=== PATIENT | female | born 2000 | race Caucasian/White ===

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

== ENCOUNTER 2022-01-15 14:53 | Emergency (ER) | payer MEDICAID, SELFPAY ==
[2021-05-29 15:25] VITALS: BP 117/73; BMI 30.6
[2022-01-15 15:06] VITALS: BP 119/79; PULSE 98; RESP 16; TEMP 36.8; O2SAT 98; BMI 38.4
--- NOTE | 2022-01-15 15:09 | XR_ITS ---
WS: [id number] Right knee, 3 views, 01/15/2022 Clinical Data: injury Comparison: None. Findings: No fractures or dislocations are seen. The joint spaces are normal. The patella is intact. The soft t issues are unremarkable. XR/XR knee RT 3V* [id number] Impression: Negative right knee. Kellgren-Warren Classification: NA
--- NOTE | 2022-01-15 15:16 | W.ED.EXTPRO ---
HPI - Extremity Problem General: Chief complaint: Extremity Injury, Lower Stated complaint: right knee injury Time Seen by Provider: 01/15/22 15:11 History of Present Illness: Patient is a 21-year-old female comes to the ED with right knee injury. Injury occurred approximately 45 minutes prior to arrival. Patient states she was walking in her house and her right knee hit a cabinet and she felt a pop. She now has 6 out of 10 pain in her right knee and says it is difficult for her to weight-bear. Any flexing of right knee causes worsening pain. She has not taken any Tylenol or ibuprofen before coming to the ED. Associated symptoms: Deny chest pain, fever(s) or rash Review of Systems Const: Denies: fever(s), chills or fatigue Eyes: Denies: change in vision or eye discomfort ENMT: Denies: throat pain, odynophagia, nasal discharge or nasal congestion Card: Denies: chest pain, palpitations, edema, swelling of feet/ankles, dyspnea on exertion or orthopnea Resp: Denies: dyspnea, productive cough or non-productive cough GI: Denies: abdominal pain, nausea, vomiting, diarrhea, constipation or hematochezia : Denies: flank pain, dysuria or hematuria Musc: Reports: extremity pain (Right knee); Denies: neck pain, back pain or extremity swelling Skin/Breast: Denies: rash or new lesions Neuro: Denies: headache(s), numbness in extremities or weakness in extremities [facility] ED PFSH: Medical History Anxiety and depression History of gestational hypertension No pertinent past medical history neghx:htn,dm,thyroid,dvt/pe Surgical History H/O section 03/22/2021- primary , delivered by Dr. Blanco at [facility] No pertinent past surgical history Family History Family/Other Cancer Maternal Grandmother and Maternal Great-Grandmother Heart disease Paternal Grandmother and Maternal Grandmother Hypertension Maternal Grandfather Stroke Paternal Grandmother Mother Hypertension Denies family history of Colon cancer Ovarian cancer Breast cancer Uterine cancer Thyroid disease Female Reproductive History: Date of last menstrual period: 05/03/20 Para: 0 Spontaneous abortions: No Physical Exam Const: COMMON NORMALS: patient oriented x3, healthy appearing and alert GENERAL APPEARANCE: cooperative and comfortable HENMT: COMMON NORMALS: normocephalic HEAD & SCALP: normocephalic MOUTH: Normal oral and palatal mucosa present THROAT: posterior oropharynx normal and uvula midline Neck/C-Spine: COMMON NORMALS: supple GENERAL: Yes normal visual inspection Resp: COMMON NORMALS: normal respiratory effort, No retractions, No use of accessory muscles and clear to auscultation bilaterally AUSCULTATION: clear to auscultation bilaterally Cardio: COMMON NORMALS: regular rate, regular rhythm, S1 normal heart sound present, S2 normal heart sound present, No gallops present (Cardio), No clicks present (Cardio), No murmurs present (Cardio) and Peripheral pulses 2+ throughout RATE: regular rate RHYTHM: regular rhythm HEART SOUNDS: S1 normal heart sound present and S2 normal heart sound present PERIPHERAL PULSES: Peripheral pulses 2+ throughout GI: COMMON NORMALS: Normal to inspection, nondistended, normoactive bowel sounds present, Soft to palpation, non-tender and no masses PALPATION: Yes Soft to palpation : COMMON NORMALS: Yes no CVA tenderness BLADDER/KIDNEY EXAM: Yes no CVA tenderness Back/Pelvis: COMMON NORMALS: no CVA tenderness Extremity: NARRATIVE EXTREMITY EXAM: Right knee-no deformity seen. Noted mild ecchymosis and swelling seen. Tenderness over patella and medial and lateral aspects of knee. Limited flexion of knee due to pain. Neurovascular tact distally. Neuro: COMMON NORMALS: patient oriented x3 SENSORIUM/ORIENTATION: Yes alert GAIT: Yes Normal gait present Skin: GENERAL SKIN EXAM: dry skin Course Vital Signs: Vital signs: Vital Signs Temperature 98.3 F 01/15/22 15:06 Pulse Rate 98 01/15/22 15:06 Respiratory Rate 16 01/15/22 15:06 Blood Pressure 119/79 01/15/22 15:06 Pulse Oximetry 98 01/15/22 15:06 Oxygen Delivery Me thod 01/15/22 15:06 MDM - Extremity (Nontraumatic) Medical Decision Making Patient is a 21-year-old female comes to the ED with right knee injury. Injury occurred approximately 45 minutes prior to arrival. Patient states she was walking in her house and her right knee hit a cabinet and she felt a pop. She now has 6 out of 10 pain in her right knee and says it is difficult for her to weight-bear. Any flexing of right knee causes worsening pain. Vitals are stable. Right knee showed a little bit of swelling and ecchymosis and tenderness over the patella region. Neurovascular tact. Rest of exam is benign. X-ray of right knee showed no acute findings. Given patient's trouble with any weightbearing and worsening pain with flexion of knee I put in a referral with case management for patient be referred to Ortho for follow-up on knee injury and pain. She was discharged home with crutches. Patient understood and agreed with plan. Lab Data Radiology Impressions Knee X-Ray 01/15/22 15:09 Impression: Negative right knee. Kellgren-Warren Classification: NA Discharge Plan Discharge Patient Disposition: Home Clinical Impression: Injury of knee, right Qualifiers: Encounter type: initial encounter Qualified Code(s): S89.91XA - Unspecified injury of right lower leg, initial encounter Condition: Stable Prescriptions: No Action sertraline [Zoloft] 25 mg tablet 25 mg PO DAILY medroxyprogesterone [Provera] 10 mg tablet 10 mg PO DAILY 10 Days Qty: 10 0RF Discharge Orders: Discharge ED (Routine); Ordered 01/15/22 Ordered By: Meng Gore Referrals: Tim Juarez [Primary Care Provider] - Discharge Diet: Regular Discharge Activity: Use walker/crutches as instructed Patient Instructions: Knee Pain (ED) Activity Restrictions/Additional Instructions: Follow-up with medical provider as directed. Case management regarding in the next several days set up an appointment with Ortho for follow-up on right knee pain. Use crutches and limit weightbearing for the next 2 to 3 days then advance weightbearing as tolerated. Take [id number] ibuprofen or Tylenol for pain. Rest, ice and elevate right knee. Return to the ER or your medical provider if condition worsens. Please read and understand discharge instructions. Thank you for choosing [facility] for your healthcare needs today. Please realize this is an emergency room and that we are providing you with a medical screening exam and this may not be complete and all inclusive of all the testing and or work up that you may need to determine your ailment or severity of your illness. It is very important that you follow up as instructed or that you return to the Emergency Department should you have concerns or if your condition changes or worsens in any way. Coding Level of Care Code ED Quality Review Trainer for Brad Linares Exam Comprehensive
--- NOTE | 2022-01-16 10:45 | DCPLANNER ---
Addendum entered by Eusebia Padgett 01/22/22 08:19: manager icu received the following message from the ortho clinic regarding follow up appointment: Left vm/mailed letter for pt to call and schedule with Wu under Dr. Vela Original Note: manager icu had message to schedule a follow up appointment for patient with ortho. manager icu sent patients information to the front office staff at ortho. Patients information will be printed and reviewed. Clinic will call patient with appointment information.
== END 2022-01-15 16:30 | disposition home or self-care (01) ==
PROVIDERS: Emergency Provider Physician Assistant; PCP Family Medicine
DX: S89.91XA Unspecified injury of right lower leg, initial encounter (principal); W22.8XXA Striking against or struck by other objects, initial encounter
CPT/HCPCS: 73562; 99283; E0114

== ENCOUNTER → 2022-03-18 11:30 | Outpatient (BNVA) | payer MEDICAID, SELFPAY ==
[2021-05-29 15:25] VITALS: BP 117/73; BMI 30.6
== END ==
PROVIDERS: PCP Family Medicine; Visit Provider Nurse Practitioner Women's Health
DX: N91.2 Amenorrhea, unspecified (principal); O03.9 Complete or unspecified spontaneous abortion without complication
CPT/HCPCS: 84702

== ENCOUNTER → 2022-06-29 09:28 | Outpatient (BNVA) | payer MEDICAID, SELFPAY ==
[2021-05-29 15:25] VITALS: BP 117/73; BMI 30.6
== END ==
PROVIDERS: PCP Family Medicine; Visit Provider Nurse Practitioner Women's Health
DX: Z32.01 Encounter for pregnancy test, result positive (principal)
CPT/HCPCS: 81025

== ENCOUNTER → 2022-07-01 09:24 | Outpatient (BNVA) | payer MEDICAID, SELFPAY ==
[2021-05-29 15:25] VITALS: BP 117/73; BMI 30.6
== END ==
PROVIDERS: PCP Family Medicine; Visit Provider Nurse Practitioner Women's Health
DX: Z00.00 Encounter for general adult medical examination without abnormal findings (principal)
CPT/HCPCS: 84702

== ENCOUNTER → 2022-07-13 07:53 | Outpatient (BNVA) | payer MEDICAID, SELFPAY ==
[2021-05-29 15:25] VITALS: BP 117/73; BMI 30.6
== END ==
PROVIDERS: Absent Provider Obstetrics & Gynecology; PCP Family Medicine; Visit Provider Nurse Practitioner Women's Health
DX: Z36.87 Encounter for antenatal screening for uncertain dates (principal)
CPT/HCPCS: 76817

== ENCOUNTER → 2022-07-23 09:00 | Outpatient (BNVA) | payer MEDICAID, SELFPAY ==
[2021-05-29 15:25] VITALS: BP 117/73; BMI 30.6
== END ==
PROVIDERS: PCP Family Medicine; Visit Provider Nurse Practitioner Women's Health
DX: Z34.90 Encounter for supervision of normal pregnancy, unspecified, unspecified trimester (principal); R31.9 Hematuria, unspecified
CPT/HCPCS: 81000; 87086

== ENCOUNTER 2022-08-13 11:37 | Emergency (ER) | payer MEDICAID, SELFPAY ==
[2021-05-29 15:25] VITALS: BP 117/73; BMI 30.6
--- NOTE | 2022-08-13 11:47 | US_ITS ---
WS: [id number] ULTRASOUND EARLY TECHNIQUE: Transabdominal sonography of the pelvis was performed. Followed by transvaginal sonography to better evaluate the uterus and ovaries. CLINICAL INFORMATION: 12 wks preg; cramping LMP: 05/23/2022 Beta hCG: Unknown. COMPARISON: None. FINDINGS: UTERUS AND GESTATIONAL SAC Intrauterine gestations: Single intrauterine gestation with pole measuring 5.3 cm. This is compatible with 12 weeks 0 da y gestation. Cardiac activity visualized. Both ovaries are normal in appearance. Closed cervix measuring 4.1 cm. Estimated gestational age: 12w0d Estimated delivery February 25, 2023 [place] rump length (CRL): 5.3 cm. heart motion: 153 BPM. Subchorionic hemorrhage: None. OVARIES Right ovary: Normal. Left ovary: Normal. FREE FLUID None. US/US OB <= 14 weeks fetus [id number] IMPRESSION: 1. Single live intrauterine . 2. pole visualized consistent with 12 weeks 0 day gestation 3. Normal ovaries bilaterally.
[2022-08-13 11:55] VITALS: BP 121/82; PULSE 84; RESP 16; TEMP 36.5; O2SAT 97; BMI 41.8
--- NOTE | 2022-08-13 13:47 | W.ED.GENADLT ---
HPI - General Adult General: Chief complaint: Abdominal Pain Stated complaint: 12 weeks , cramping Time Seen by Provider: 08/13/22 13:11 Source: patient Mode of arrival: ambulatory Limitations: no limitations History of Present Illness: Patient is a 22-year-old female at approximately 11 weeks here for concerns of abdominal cramping that began earlier today when she sit on the toilet and tried to urinate and began noticing abdominal cramping. Patient states she never had any vaginal bleeding. She is not complaining of dysuria, frequency, urgency. Patient states her OB is considered high risk secondary to borderline preeclampsia with her previous and was told to come to the ED for further evaluation. Patient states she also has a complaint of a headache that has been bothering her over the past few days. She denies any visual changes. Denies nausea or vomiting. No neurologic complaints. Onset (ago): day(s) (intermittent DICKINSON; abdominal cramping a few hours ago) Severity: mild Pain Consistency: intermittent (headache; abdominal cramping improved upon arrival to ED) Relieving factors: none Exacerbating factors: none Associated symptoms: Reports headache(s); Deny chest pain, confusion, dyspnea or rash Treatments prior to arrival: none Review of Systems Const: Denies: fever(s), chills, body aches or fatigue Eyes: Denies: change in vision, blurry vision, photophobia, floaters or seeing flashes Card: Denies: chest pain Resp: Denies: dyspnea GI: Reports: GI cramping; Denies: diarrhea, change in bowel habits or melena : Denies: flank pain, difficulty voiding, dysuria, urinary frequency, urinary urgency, urinary hesitancy or pelvic pain Musc: Denies: neck pain, back pain, extremity pain, extremity swelling or joint pain Skin/Breast: Denies: rash Neuro: Reports: headache(s); Denies: numbness in extremities, weakness in extremities, sensory changes, lack of coordination, difficulty walking, frequent falls, dizziness or confusion PFS ED PFSH: Medical History Anxiety and depression History of gestational hypertension at term with her first No pertinent past medical history neghx:htn,dm,thyroid,dvt/pe Surgical History H/O section 03/22/2021- primary --low transverse uterine incision for OP presentation and CPD. Delivered by Dr. Blanco at [facility] Family History Family/Other Cancer Maternal Grandmother and Maternal Great-Grandmother Heart disease Paternal Grandmother and Maternal Grandmother Hypertension Maternal Grandfather Stroke Paternal Grandmother Mother Hypertension Denies family history of Colon cancer Ovarian cancer Breast cancer Uterine cancer Thyroid disease Female Reproductive History: Para: 0 Spontaneous abortions: No Physical Exam Const: COMMON NORMALS: no acute distress, average body habitus, patient oriented x3, no limitations, healthy appearing, alert and well nourished GENERAL APPEARANCE: cooperative ORIENTATION/CONSCIOUSNESS: Yes awake, Yes oriented to person, Yes oriented to place and Yes oriented to time HENMT: COMMON NORMALS: normocephalic and atraumatic HEAD & SCALP: normal to inspection, normocephalic and atraumatic Neck/C-Spine: COMMON NORMALS: full ROM, no lymphadenopathy and no meningeal signs Resp: COMMON NORMALS: normal respiratory effort and clear to auscultation bilaterally AUSCULTATION: clear to auscultation bilaterally Cardio: COMMON NORMALS: regular rate and regular rhythm RATE: regular rate RHYTHM: regular rhythm GI: COMMON NORMALS: Normal to inspection, nondistended, normoactive bowel sounds present, Soft to palpation and non-tender PALPATION: Yes Soft to palpation : COMMON NORMALS: Yes no CVA tenderness BLADDER/KIDNEY EXAM: Yes no CVA tenderness Back/Pelvis: COMMON NORMALS: no CVA tenderness Extremity: COMMON NORMALS: normal to inspection GENERAL: Yes normal exam except as noted Neuro: MELLY COMA SCALE: document GCS findings [place] coma scale eye opening: Spontaneous [place] coma scale verbal response: Orientated [place] coma scale motor response: Obey commands Melly coma scale total score: 15 COMMON NORMALS: patient oriented x3 and gait normal SENSORIUM/ORIENTATION: Yes alert, Yes oriented to person, Yes oriented to place and Yes oriented to time MENINGEAL SIGNS: Yes no meningeal signs Skin: COMMON NORMALS: no rashes or lesions noted GENERAL SKIN EXAM: no rashes or lesions noted Course Vital Signs: Vital signs: Vital Signs Temperature 97.7 F 08/13/22 11:55 Pulse Rate 88 04/13/23 15:31 Respiratory Rate 14 08/13/22 15:31 Blood Pressure 119/80 08/13/22 15:31 Pulse Oximetry 99 08/13/22 15:31 Oxygen Delivery Me thod Room Air 08/13/22 15:31 MDM - General Adult Medical Decision Making Patient here for with complaints of abdominal cramping and a headache. She is approximately 11 weeks . Ultrasound obtained which shows a single live intrauterine with a gestation of 12w0d. She has not had any further cramping while here. No vaginal bleeding. Blood work overall is unremarkable. UA without evidence of infection. Headache was treated with IV fluids, acetaminophen, Benadryl, and Reglan and has subsided upon repeat assessment. Patient states she feels comfortable going home at this time. Recommend she follow-up with her OB provider. Return ED precautions given. Lab Data 08/13/22 14:17 08/13/22 14:17 Radiology Impressions Ultrasound 08/13/22 11:47 IMPRESSION: 1. Single live intrauterine . 2. pole visualized consistent with 12 weeks 0 day gestation 3. Normal ovaries bilaterally. Laboratory Results WBC 10.9 10^3/uL (4.5-13.0) 08/13/22 14:17 RBC 4.58 10^6/uL (4.1-5.3) 08/13/22 14:17 Hgb 13.1 g/dL (11.5-15.3) 08/13/22 14:17 Hct 39.5 % (37.0-47.0) 08/13/22 14:17 MCV 86.2 fl (81-99) 08/13/22 14:17 MCH 28.6 pg (28.0-34.0) 08/13/22 14:17 MCHC 33.2 g/dL (30.0-36.0) 08/13/22 14:17 RDW 13.7 % (12.1-15.1) 08/13/22 14:17 Plt Count 243 10^3/cmm (130-400) 08/13/22 14:17 MPV 11.5 fL (7.4-10.4) H 08/13/22 14:17 Neut % (Auto) 70.5 % 08/13/22 14:17 Lymph % (Auto) 21.6 % 08/13/22 14:17 [place] % (Auto) 5.9 % 08/13/22 14:17 Eos % (Auto) 1.0 % 08/13/22 14:17 Baso % (Auto) 0.5 % 08/13/22 14:17 Neut # (Auto) 7.72 10^3/uL (1.8-8.0) 08/13/22 14:17 Lymph # (Auto) 2.4 10^3/uL (1.5-6.5) 08/13/22 14:17 [place] # (Auto) 0.6 10^3/uL (0.2-0.9) 08/13/22 14:17 Eos # (Auto) 0.1 10^3/uL (0.0-0.8) 08/13/22 14:17 Baso # (Auto) 0.1 10^3/uL (0.0-0.1) 08/13/22 14:17 Nucleated RBC % (auto) 0 % 08/13/22 14:17 Nucleated RBCs # 0.0 /100WBC 08/13/22 14:17 Sodium 136 mmol/L (136-145) 08/13/22 14:17 Potassium 3.8 mmol/L (3.5-5.1) 08/13/22 14:17 Chloride 100 mmol/L (98-107) 08/13/22 14:17 Carbon Dioxide 22 mmol/L (22-29) 08/13/22 14:17 Anion Gap 17.8 (5-19) 08/13/22 14:17 BUN 9 mg/dL (6-20) 08/13/22 14:17 Creatinine 0.5 mg/dL (0.5-0.9) 08/13/22 14:17 GFR Calculation 157.3 mL/min (90-130) H 08/13/22 14:17 Glucose 68 mg/dL (65-115) 08/13/22 14:17 Calculated Osmolality 279 mOsm/kg (285-295) L 08/13/22 14:17 Calcium 9.2 mg/dL (8.5-10.5) 08/13/22 14:17 Total Bilirubin 0.3 mg/dL (0.15-1.2) 08/13/22 14:17 AST 18 U/L (0-32) 08/13/22 14:17 ALT 13 U/L (0-33) 08/13/22 14:17 Alkaline Phosphatase 87 U/L (35-105) 08/13/22 14:17 Total Protein 7.9 g/dL (6.6-8.7) 08/13/22 14:17 Albumin 4.1 g/dL (3.5-5.2) 08/13/22 14:17 Globulin 3.8 g/dL (1.3-4.6) 08/13/22 14:17 Urine Color Yellow (Yellow) 08/13/22 15:13 Urine Appearance Sl cloudy (CLEAR) A 08/13/22 15:13 Urine pH 5 (5-7) 08/13/22 15:13 Ur Specific [place] 1.030 (1.005-1.030) 08/13/22 15:13 Urine Protein Neg (Negative) 08/13/22 15:13 Urine Glucose (UA) Norm (Normal) 08/13/22 15:13 Urine Ketones 1+ (Negative) H 08/13/22 15:13 Urine Blood Neg (Negative) 08/13/22 15:13 Urine Nitrate Negative (Negative) 08/13/22 15:13 Urine Bilirubin Neg (Negative) 08/13/22 15:13 Urine Urobilinogen Neg mg/dL (Negative) 08/13/22 15:13 Ur Leukocyte Esterase Negative (Negative) 08/13/22 15:13 Blood Type B Positive 08/13/22 14:25 Rho(D) Type Positive 08/13/22 14:25 Discharge Plan Discharge Patient Disposition: Home Clinical Impression: Abdominal cramping, Headache Condition: Stable Prescriptions: No Action prenat.vits,kvng,fjl-zihk-bkdqy Tablet 1 tab PO DAILY Discharge Orders: Discharge ED (Routine); Ordered 08/13/22 Ordered By: Amber Atwood Referrals: Tim Juarez [Primary Care Provider] - Coding Level of Care Code ED Cloth Shrinking Supervisor for Briang Vijay
[2022-08-13] MEDS: metoclopramide 5 mg/mL SDV 2 mL 10 MG IVP (14:18)
[2022-08-13] MEDS: diphenhydrAMINE 50 mg/mL SDV 1mL IVP (14:18)
[2022-08-13] MEDS: acetaminophen 1,000 MG/100 ML PIGGYBACK 400 MG IV (14:18)
[2022-08-13] MEDS: sodium chloride 0.9% 1,000 ML 999 ML IV (14:18)
[2022-08-13 14:27] LABS: Basophils # 0.1 10^3/uL (0.0-0.1); Basophils % 0.5 %; Eosinophils # 0.1 10^3/uL (0.0-0.8); Hematocrit 39.5 % (37.0-47.0); Hemoglobin 13.1 g/dL (11.5-15.3); Lymphocytes # 2.4 10^3/uL (1.5-6.5); Lymphocytes % 21.6 %; Mean Corpuscular HGB Conc 33.2 g/dL (30.0-36.0); Mean Corpuscular Hemoglobin 28.6 pg (28.0-34.0); Mean Corpuscular Volume 86.2 fl (81-99); Mean Platelet Volume 11.5 fL (7.4-10.4); Monocytes # 0.6 10^3/uL (0.2-0.9); Monocytes % 5.9 %; Neutrophils # 7.72 10^3/uL (1.8-8.0); Neutrophils % 70.5 %; Nucleated Red Blood Cells % 0 %; Platelet Count 243 10^3/cmm (130-400); Red Blood Count 4.58 10^6/uL (4.1-5.3); Red Cell Distribution Width 13.7 % (12.1-15.1); White Blood Count 10.9 10^3/uL (4.5-13.0)
[2022-08-13 14:51] LABS: Alanine Aminotransferase 13 U/L (0-33); Albumin Level 4.1 g/dL (3.5-5.2); Alkaline Phosphatase 87 U/L (35-105); Aspartate Amino Transferase 18 U/L (0-32); Blood Urea Nitrogen 9 mg/dL (6-20); Calcium 9.2 mg/dL (8.5-10.5); Carbon Dioxide 22 mmol/L (22-29); Chloride 100 mmol/L (98-107); Globulin 3.8 g/dL (1.3-4.6); Glomerular Filtration Rate 157.3 mL/min (90-130); Glucose 68 mg/dL (65-115); Osmolality Calculated 279 mOsm/kg (285-295); Sodium 136 mmol/L (136-145); Total Bilirubin 0.3 mg/dL (0.15-1.2); Total Protein 7.9 g/dL (6.6-8.7)
[2022-08-13 14:53] LABS: Anion Gap 17.8 (5-19); Potassium 3.8 mmol/L (3.5-5.1)
[2022-08-13 15:31] VITALS: BP 119/80; PULSE 88; RESP 14; O2SAT 99
[2022-08-13 15:58] LABS: Add Urine Microscopic? NO; Charge for UA Resulting for Rev
[2022-08-13 16:13] LABS: Bilirubin Urine Neg (Negative); Blood Urine Neg (Negative); Glucose Urine UA Norm (Normal); Ketones Urine 1+ (Negative); Leukocyte Esterase Urine Negative (Negative); Nitrate Urine Negative (Negative); Protein Urine Neg (Negative); Urine Color Yellow (Yellow); Urobilinogen Urine Neg (Negative); pH Urine 5 (5-7)
== END 2022-08-13 16:39 | disposition home or self-care (01) ==
PROVIDERS: Emergency Provider Physician Assistant; PCP Family Medicine
DX: O26.891 Other specified pregnancy related conditions, first trimester (principal); R10.9 Unspecified abdominal pain; R51.9 Headache, unspecified; Z3A.12 12 weeks gestation of pregnancy
CPT/HCPCS: 36415; 76801; 80053; 80307; 81000; 81003; 85025; 85027; 86592; 86762; 86803; 86850; 86900; 87086; 87340; 87806; 96374; 96375; 99285; J0131; J1200; J2765; J7030

== ENCOUNTER → 2022-08-25 14:00 | Outpatient (BNVA) | payer MEDICAID, SELFPAY ==
[2021-05-29 15:25] VITALS: BP 117/73; BMI 30.6
== END ==
PROVIDERS: PCP Family Medicine; Visit Provider Obstetrics & Gynecology
DX: O09.899 Supervision of other high risk pregnancies, unspecified trimester (principal); O13.9 Gestational [pregnancy-induced] hypertension without significant proteinuria, unspecified trimester; O34.219 Maternal care for unspecified type scar from previous cesarean delivery; F41.9 Anxiety disorder, unspecified; F32.9 Major depressive disorder, single episode, unspecified; O99.210 Obesity complicating pregnancy, unspecified trimester; Z78.9 Other specified health status; Z3A.00 Weeks of gestation of pregnancy not specified
CPT/HCPCS: 81000; 87491; 87591; 87661

== ENCOUNTER → 2022-10-16 13:09 | Outpatient (BNVA) | payer MEDICAID, SELFPAY ==
[2021-05-29 15:25] VITALS: BP 117/73; BMI 30.6
== END ==
PROVIDERS: PCP Family Medicine; Visit Provider Obstetrics & Gynecology
DX: O09.899 Supervision of other high risk pregnancies, unspecified trimester (principal); Z3A.20 20 weeks gestation of pregnancy
CPT/HCPCS: 76805

== ENCOUNTER → 2022-10-19 14:40 | Outpatient (BNVA) | payer MEDICAID, SELFPAY ==
[2021-05-29 15:25] VITALS: BP 117/73; BMI 30.6
== END ==
PROVIDERS: PCP Family Medicine; Visit Provider Obstetrics & Gynecology
DX: O09.899 Supervision of other high risk pregnancies, unspecified trimester (principal); Z3A.00 Weeks of gestation of pregnancy not specified
CPT/HCPCS: 81000

== ENCOUNTER → 2022-11-12 14:30 | Outpatient (BNVA) | payer MEDICAID, SELFPAY ==
[2021-05-29 15:25] VITALS: BP 117/73; BMI 30.6
== END ==
PROVIDERS: PCP Family Medicine; Visit Provider Nurse Practitioner Women's Health
DX: O09.899 Supervision of other high risk pregnancies, unspecified trimester (principal); Z3A.24 24 weeks gestation of pregnancy
CPT/HCPCS: 81000; 82950; 85025

== ENCOUNTER → 2022-11-20 08:20 | Outpatient (BNVA) | payer MEDICAID, SELFPAY ==
[2021-05-29 15:25] VITALS: BP 117/73; BMI 30.6
== END ==
PROVIDERS: PCP Family Medicine; Visit Provider Obstetrics & Gynecology
DX: R73.09 Other abnormal glucose (principal)
CPT/HCPCS: 82951; 82952

== ENCOUNTER → 2022-11-30 15:34 | Outpatient (BNVA) | payer MEDICAID, SELFPAY ==
[2021-05-29 15:25] VITALS: BP 117/73; BMI 30.6
== END ==
PROVIDERS: PCP Family Medicine; Visit Provider Obstetrics & Gynecology
DX: O09.899 Supervision of other high risk pregnancies, unspecified trimester (principal); O99.019 Anemia complicating pregnancy, unspecified trimester; D64.9 Anemia, unspecified; Z3A.00 Weeks of gestation of pregnancy not specified
CPT/HCPCS: 81000

== ENCOUNTER 2022-12-07 15:43 | Outpatient (CLI) | payer MEDICAID, SELFPAY ==
[2021-05-29 15:25] VITALS: BP 117/73; BMI 30.6
--- NOTE | 2022-12-07 16:15 | USR_ITS ---
PROCEDURE INFORMATION: Exam: US ; Follow up Exam date and time: 12/07/2022 4:14 PM Age: 22 years old Clinical indication: Screening exam; Routine US, uterus; Additional info: Z34.90 - encounter for supervision of normal , u. . . , Fundal heights greater than dates LABS AND CLINICAL REPORTS: Last menstrual period start date: 05/23/2022 Gestational age (Established): 28 w 2 d Estimated due date (Established): 02/27/2023 TECHNIQUE: Imaging protocol: Transabdominal ultrasound of the uterus, real time with image documentation. Follow-up (eg, re-evaluation of size by measuring standard growth parameters and amniotic fluid volume, re-evaluation of organ system(s) suspected or confirmed to be abnormal on a previous scan). COMPARISON: US OB >= 14 weeks fetus [id number] 10/16/2022 1:11 PM FINDINGS: Gestation: Single live intrauterine gestation. heart rate: 136 bpm. presentation: Cephalic presentation. Placenta: No placenta previa. Posterior placenta. Grade 0. Amniotic fluid: deepest vertical pocket 4.7 cm. Amniotic fluid index: 14.3 cm (normal) BIOMETRY: Gestational age (AUA): 29 weeks 1 day by ultrasound (28 weeks 2 days by established dates) Estimated due date (AUA): 02/21/2023 by ultrasound (02/27/2023 by established dates, 02/25/2023 by 21 week ultrasound) Estimated weight: 1342 g (66th percentile based on established dates) Biparietal diameter (BPD): 7.2 cm. EGA (BPD) is 29 w 0 d Head circumference (HC): 26.6 cm. EGA (HC) is 29 w 0 d Abdominal circumference (AC): 24.8 cm. EGA (AC) is 29 w 0 d Femur length (FL): 5.6 cm. EGA (FL) is 29 w 3 d Cephalic Index (CI): 80.5 % HC/AC: 1.08 FL/HC: 21 % FL/BPD: 77.4 % FL/AC: 22.6 % MATERNAL: Cervix: Cervical length measures 4.1 cm. Cervix is closed but suboptimally evaluated as it is partially obscured by the head. US/[place] [id number] IMPRESSION: 1. Single live intrauterine gestation. Estimated gestational age by ultrasound is 29 weeks 1 day (28 weeks 2 days by established dates). 2. Appropriate interval growth since 10/16/2022.
== END 2022-12-07 15:44 | disposition home or self-care (01) ==
PROVIDERS: PCP Family Medicine; Visit Provider Obstetrics & Gynecology
DX: O09.893 Supervision of other high risk pregnancies, third trimester (principal); Z3A.29 29 weeks gestation of pregnancy
CPT/HCPCS: 76816; 81000

== ENCOUNTER → 2022-12-18 11:15 | Outpatient (BNVA) | payer MEDICAID, SELFPAY ==
[2021-05-29 15:25] VITALS: BP 117/73; BMI 30.6
== END ==
PROVIDERS: PCP Family Medicine; Visit Provider Obstetrics & Gynecology
DX: O09.899 Supervision of other high risk pregnancies, unspecified trimester (principal); Z3A.29 29 weeks gestation of pregnancy
CPT/HCPCS: 81000

== ENCOUNTER → 2022-12-24 15:19 | Outpatient (BNVA) | payer MEDICAID, SELFPAY ==
[2021-05-29 15:25] VITALS: BP 117/73; BMI 30.6
== END ==
PROVIDERS: PCP Family Medicine; Visit Provider Obstetrics & Gynecology
DX: O09.899 Supervision of other high risk pregnancies, unspecified trimester (principal); Z3A.30 30 weeks gestation of pregnancy
CPT/HCPCS: 81000

== ENCOUNTER → 2023-01-08 13:04 | Outpatient (BNVA) | payer MEDICAID, SELFPAY ==
[2021-05-29 15:25] VITALS: BP 117/73; BMI 30.6
== END ==
PROVIDERS: PCP Family Medicine; Visit Provider Obstetrics & Gynecology
DX: O09.899 Supervision of other high risk pregnancies, unspecified trimester (principal); Z3A.32 32 weeks gestation of pregnancy
CPT/HCPCS: 81000

== ENCOUNTER → 2023-01-14 14:13 | Outpatient (BNVA) | payer MEDICAID, SELFPAY ==
[2021-05-29 15:25] VITALS: BP 117/73; BMI 30.6
== END ==
PROVIDERS: PCP Family Medicine; Visit Provider Obstetrics & Gynecology
DX: O09.899 Supervision of other high risk pregnancies, unspecified trimester (principal); O34.219 Maternal care for unspecified type scar from previous cesarean delivery; O24.419 Gestational diabetes mellitus in pregnancy, unspecified control; O13.9 Gestational [pregnancy-induced] hypertension without significant proteinuria, unspecified trimester; O99.210 Obesity complicating pregnancy, unspecified trimester; F41.9 Anxiety disorder, unspecified; F32.9 Major depressive disorder, single episode, unspecified; Z78.9 Other specified health status; Z3A.00 Weeks of gestation of pregnancy not specified
CPT/HCPCS: 81000

== ENCOUNTER 2023-01-18 10:58 | Outpatient (CLI) | payer MEDICAID, SELFPAY ==
[2021-05-29 15:25] VITALS: BP 117/73; BMI 30.6
[2023-01-18 11:14] VITALS: BP 127/70; PULSE 101
[2023-01-18 11:24] VITALS: BMI 42.6
[2023-01-18 11:31] VITALS: BP 131/77; PULSE 107
[2023-01-18 11:45] VITALS: BP 140/80; PULSE 114
== END 2023-01-18 11:53 | disposition home or self-care (01) ==
LOC: OPOB 11:04 → OBGYN 11:05
PROVIDERS: PCP Family Medicine; Visit Provider Obstetrics & Gynecology
DX: O24.419 Gestational diabetes mellitus in pregnancy, unspecified control (principal); Z3A.00 Weeks of gestation of pregnancy not specified
CPT/HCPCS: 59025

== ENCOUNTER → 2023-01-21 14:26 | Outpatient (BNVA) | payer MEDICAID, SELFPAY ==
[2021-05-29 15:25] VITALS: BP 117/73; BMI 30.6
== END ==
PROVIDERS: PCP Family Medicine; Visit Provider Obstetrics & Gynecology
DX: O09.899 Supervision of other high risk pregnancies, unspecified trimester (principal); Z3A.34 34 weeks gestation of pregnancy
CPT/HCPCS: 76815; 76819; 81000

== ENCOUNTER 2023-01-26 13:37 | Outpatient (CLI) | payer MEDICAID, SELFPAY ==
[2021-05-29 15:25] VITALS: BP 117/73; BMI 30.6
[2023-01-26] VITALS (8 sets, daily range): BP systolic 95–122; BP diastolic 53–63; PULSE 99–120; RESP 18; BMI 43.5
[2023-01-26 14:32] LABS: Add Urine Microscopic? YES; Bilirubin Urine Neg (Negative); Blood Urine Neg (Negative); Glucose Urine UA Norm (Normal); Ketones Urine 1+ (Negative); Leukocyte Esterase Urine Trace (Negative); Nitrate Urine Negative (Negative); Protein Urine Neg (Negative); Specific Gravity, Urine 1.015 (1.005-1.030); Urine Appearance Hazy (CLEAR); Urine Color Yellow (Yellow); Urobilinogen Urine Norm (Negative); pH Urine 7 (5-7)
[2023-01-26 14:33] LABS: Add Urine Culture? No; Bacteria Urine 1+ /hpf; Mucus Urine TRACE /hpf; RBC Urine 0-4 /hpf (0-2); WBC Urine 0-4 /hpf (0-5)
[2023-01-26] MEDS: nitrofurantoin SR (BID) 100 mg Capsule PO (15:28)
== END 2023-01-26 15:30 | disposition home or self-care (01) ==
LOC: OPOB 13:38 → OBGYN 13:38
PROVIDERS: PCP Family Medicine; Visit Provider Obstetrics & Gynecology
DX: O36.8190 Decreased fetal movements, unspecified trimester, not applicable or unspecified (principal); Z3A.00 Weeks of gestation of pregnancy not specified; M54.9 Dorsalgia, unspecified
CPT/HCPCS: 59025; 81001; 99211

== ENCOUNTER → 2023-01-28 10:17 | Outpatient (BNVA) | payer MEDICAID, SELFPAY ==
[2021-05-29 15:25] VITALS: BP 117/73; BMI 30.6
== END ==
PROVIDERS: PCP Family Medicine; Visit Provider Nurse Practitioner Women's Health
DX: O09.899 Supervision of other high risk pregnancies, unspecified trimester (principal); Z3A.35 35 weeks gestation of pregnancy
CPT/HCPCS: 76819

== ENCOUNTER 2023-01-28 12:24 | Outpatient (CLI) | payer MEDICAID, SELFPAY ==
[2021-05-29 15:25] VITALS: BP 117/73; BMI 30.6
[2023-01-28] VITALS (14 sets, daily range): BP systolic 115–145; BP diastolic 62–85; PULSE 95–115; RESP 17; TEMP 35.7–35.8; BMI 43.0
--- NOTE | 2023-01-28 14:05 | PM.OBGYPN ---
HEALTH AND WELLNESS COACH Subjective Subjective: Interval history: 22 y.o. EDC February 27, 2023 At 35 w 5 d c/o back pain since three days ago pain constant but occasionally worsen no dysuria, hematuria + active movements No vaginal bleeding or fluid leakage h/o GDM controlled with diet h/o x one for failure to descend Labor: Station: -3 Amniotic Membrane Status: Intact Monitor Mode: External Contraction Pattern: Rare Vitals/I&O/Wt Last Vital Signs Temp 96.4 F L 01/28/23 12:41 Pulse 99 01/28/23 17:14 Resp 17 01/28/23 14:56 BP 126/62 01/28/23 17:14 01/28/23 01/28/23 01/28/23 06:59 14:59 22:59 Intake Total 1050 / 1050 Balance 1050 / 1050 Weight last 48 hrs Weight 235 lb Physical Exam Narrative: Comfortable, in no distress Weight 235 lbs; 5?2? VS normal Lungs: clear Cor: RRR Abd: soft, nontender Cervix: 2 cm / 50% / high / posterior External monitor: occasional UCs heart tracing good variability, + accelerations A&P Assessment and plan (1) Supervision of other high-risk : 35 w 5 d (2) labor: Send UA and C&S Plan IV Ancef x one dose for possible UTI Plan Procardia 30 mg XL x one dose Discussed with patient route of delivery if her cervix progresses Patient wants repeat , does not want trial of labor Continue to monitor Expectant management for now h/o x one Attestations Medical Necessity Statement*: patient at 35 w 5 d with labor Coding Level of Care Code Acute Code for Chg Fwd Diagnoses Supervision of other high-risk O09.899 labor O60.00 Time Spent (min) 30
[2023-01-28 14:29] LABS: Bilirubin Urine Neg (Negative); Blood Urine Neg (Negative); Glucose Urine UA Norm (Normal); Ketones Urine 1+ (Negative); Leukocyte Esterase Urine Negative (Negative); Nitrate Urine Negative (Negative); Protein Urine Neg (Negative); Urine Appearance Hazy (CLEAR); Urine Color Yellow (Yellow); Urobilinogen Urine Norm (Negative); pH Urine 6 (5-7)
[2023-01-28] MEDS: ceFAZolin 2,000 MG in sodium chloride 0.9% (plus) 50 ML 100 MG IV (14:35)
[2023-01-28] MEDS: NIFEdipine ER (24 hr) 30 mg Tablet PO (14:35)
[2023-01-28] MEDS: lactated ringers 1,000 ML 999 ML IV (14:38)
[2023-01-28 14:39] LABS: Bacteria Urine TRACE /hpf; Mucus Urine 2+ /hpf; RBC Urine 0-4 /hpf (0-2); Squamous Epithelial Cell Urine 0-4 /hpf (0-5); WBC Urine 0-4 /hpf (0-5)
[2023-01-28 14:40] LABS: Add Urine Culture? No
--- NOTE | 2023-01-28 17:15 | PM.OBGYPN ---
DEVELOPMENT ANALYST Subjective Subjective: Interval history: Patient states she is feeling better Less back pain Patient wants to go home External monitor: no UCs heart tracing good variability, + accelerations Cervix: unchanged at 2 cm / high / posterior Plan discharge home Plan Procardia 30 mg XL one po daily Patient has appointment to return on February 04, 2023 Labor precautions given Labor: Station: -3 Amniotic Membrane Status: Intact Monitor Mode: External Contraction Pattern: Rare Vitals/I&O/Wt Last Vital Signs Temp 96.4 F L 01/28/23 12:41 Pulse 99 01/28/23 17:14 Resp 17 01/28/23 14:56 BP 126/62 01/28/23 17:14 01/28/23 01/28/23 01/28/23 06:59 14:59 22:59 Intake Total 1050 / 1050 Balance 1050 / 1050 Weight last 48 hrs Weight 235 lb Attestations Medical Necessity Statement*: patient at 35 w 5 d, with labor; improved symptoms Coding Level of Care Code Acute Code for Chg Fwd Diagnoses Time Spent (min) 20
== END 2023-01-28 17:28 | disposition home or self-care (01) ==
LOC: OPOB 12:32 → OBGYN 12:35
PROVIDERS: PCP Family Medicine; Visit Provider Obstetrics & Gynecology
DX: O60.03 Preterm labor without delivery, third trimester (principal); Z3A.35 35 weeks gestation of pregnancy
CPT/HCPCS: 36415; 59025; 81001; 83986; 84315; 85027; 87081; 99211; J0690; J7120

== ENCOUNTER 2023-02-03 10:26 | Outpatient (CLI) | payer MEDICAID, SELFPAY ==
[2021-05-29 15:25] VITALS: BP 117/73; BMI 30.6
[2023-02-03 10:26] VITALS: BMI 43.5
[2023-02-03 10:38] VITALS: BP 106/55; PULSE 118
[2023-02-03 10:58] VITALS: BP 114/75; PULSE 107
== END 2023-02-03 11:15 | disposition home or self-care (01) ==
LOC: OPOB 10:29 → OBGYN 10:29
PROVIDERS: PCP Family Medicine; Visit Provider Obstetrics & Gynecology
DX: O24.419 Gestational diabetes mellitus in pregnancy, unspecified control (principal); Z3A.00 Weeks of gestation of pregnancy not specified
CPT/HCPCS: 59025; 99211

== ENCOUNTER → 2023-02-04 13:26 | Outpatient (BNVA) | payer MEDICAID, SELFPAY ==
[2021-05-29 15:25] VITALS: BP 117/73; BMI 30.6
== END ==
PROVIDERS: PCP Family Medicine; Visit Provider Nurse Practitioner Women's Health
DX: O09.899 Supervision of other high risk pregnancies, unspecified trimester (principal); Z3A.36 36 weeks gestation of pregnancy
CPT/HCPCS: 76819; 81000

== ENCOUNTER 2023-02-08 11:00 | Outpatient (CLI) | payer MEDICAID, SELFPAY ==
[2021-05-29 15:25] VITALS: BP 117/73; BMI 30.6
[2023-02-08 11:04] VITALS: BP 127/77; PULSE 116
[2023-02-08 11:07] VITALS: BMI 43.0
[2023-02-08 11:13] VITALS: RESP 16
[2023-02-08 11:20] VITALS: BP 119/71; PULSE 106
[2023-02-08 11:25] VITALS: BP 119/71; PULSE 106
== END 2023-02-08 11:26 | disposition home or self-care (01) ==
LOC: OPOB 11:02 → OBGYN 11:03
PROVIDERS: PCP Family Medicine; Visit Provider Obstetrics & Gynecology
DX: O24.419 Gestational diabetes mellitus in pregnancy, unspecified control (principal); Z3A.00 Weeks of gestation of pregnancy not specified
CPT/HCPCS: 59025

== ENCOUNTER 2023-02-09 12:17 | Outpatient (CLI) | payer MEDICAID, SELFPAY ==
[2021-05-29 15:25] VITALS: BP 117/73; BMI 30.6
[2023-02-09 12:20] VITALS: BMI 43.9
[2023-02-09 12:33] VITALS: BP 107/58; PULSE 118
[2023-02-09 12:54] VITALS: BP 116/58; PULSE 105
[2023-02-09 13:13] VITALS: BP 129/65; PULSE 110
[2023-02-09 13:33] VITALS: BP 123/62; PULSE 99
[2023-02-09 13:53] VITALS: BP 117/58; PULSE 100
[2023-02-09 14:11] VITALS: BP 117/58; PULSE 100; RESP 18
== END 2023-02-09 13:55 | disposition home or self-care (01) ==
LOC: OPOB 12:20 → OBGYN 12:21
PROVIDERS: PCP Family Medicine; Visit Provider Obstetrics & Gynecology
DX: O26.899 Other specified pregnancy related conditions, unspecified trimester (principal); Z3A.00 Weeks of gestation of pregnancy not specified; R10.9 Unspecified abdominal pain
CPT/HCPCS: 59025; 99211

== ENCOUNTER → 2023-02-11 13:05 | Outpatient (BNVA) | payer MEDICAID, SELFPAY ==
[2021-05-29 15:25] VITALS: BP 117/73; BMI 30.6
== END ==
PROVIDERS: PCP Family Medicine; Visit Provider Obstetrics & Gynecology
DX: O09.899 Supervision of other high risk pregnancies, unspecified trimester (principal); Z3A.37 37 weeks gestation of pregnancy
CPT/HCPCS: 76819

== ENCOUNTER 2023-02-11 15:40 | Outpatient (CLI) | payer MEDICAID, SELFPAY ==
[2021-05-29 15:25] VITALS: BP 117/73; BMI 30.6
[2023-02-11 15:40] VITALS: BMI 43.1
[2023-02-11 15:49] VITALS: RESP 18
[2023-02-11 15:50] VITALS: BP 114/56; PULSE 118
[2023-02-11 16:05] VITALS: BP 134/65; PULSE 107
== END 2023-02-11 16:19 | disposition home or self-care (01) ==
LOC: OPOB 15:44 → OBGYN 15:45
PROVIDERS: PCP Family Medicine; Visit Provider Obstetrics & Gynecology
DX: O26.899 Other specified pregnancy related conditions, unspecified trimester (principal); Z3A.00 Weeks of gestation of pregnancy not specified; R10.9 Unspecified abdominal pain
CPT/HCPCS: 59025; 81000; 99211

== ENCOUNTER 2023-02-12 09:55 | Outpatient (CLI) | payer MEDICAID, SELFPAY ==
[2021-05-29 15:25] VITALS: BP 117/73; BMI 30.6
[2023-02-12] VITALS (10 sets, daily range): BP systolic 99–138; BP diastolic 52–77; PULSE 91–127; RESP 16; TEMP 35.6; BMI 43.1
[2023-02-12] MEDS: hyDROXYzine 25 mg Capsule 50 MG PO (12:27)
== END 2023-02-12 12:28 | disposition home or self-care (01) ==
LOC: OPOB 09:59 → OBGYN 10:00
PROVIDERS: PCP Family Medicine; Visit Provider Obstetrics & Gynecology
DX: O26.899 Other specified pregnancy related conditions, unspecified trimester (principal); Z3A.00 Weeks of gestation of pregnancy not specified; R10.9 Unspecified abdominal pain
CPT/HCPCS: 59025; 99211

== ENCOUNTER → 2023-02-18 13:13 | Outpatient (BNVA) | payer MEDICAID, SELFPAY ==
[2021-05-29 15:25] VITALS: BP 117/73; BMI 30.6
== END ==
PROVIDERS: PCP Family Medicine; Visit Provider Obstetrics & Gynecology
DX: O09.899 Supervision of other high risk pregnancies, unspecified trimester (principal); Z3A.38 38 weeks gestation of pregnancy
CPT/HCPCS: 76815; 76819; 81000

== ENCOUNTER 2023-02-23 05:09 | Inpatient (IN) | payer MEDICAID, SELFPAY ==
[2021-05-29 15:25] VITALS: BP 117/73; BMI 30.6
--- NOTE | 2023-02-18 10:36 | P.ANESASSM_ITS ---
Pre-Anesthetic Assessment Height/Weight: Height 1.57 m Operation Date: 02/23/23 07:00 Proposed Procedures p Repeat section 00336 ,O34.219(Not Applicable) - Devon Gracia MD Familial anesthetic complications: Epidural quit working and she required GETA for her Social No alcohol and No tobacco Exam alert, oriented x 3, clear to auscultation bilaterally and regular rate & rhythm Airway Mallampati: Class I Dentition: full GI Gastroesophageal Reflux Disease (severe) Metabolic Diabetes Mellitus (gestational DM) Anesthetic Plan ASA status: 3 Anesthesia: Regional (specify below) (Spinal) Risk of > 500 ml blood loss (7ml/kg in children): Yes, adequate IV access and fluids planned Medications/Allergies Home Medications Medication Instructions Recorded Confirmed Last Taken Type prenat.vits,kvng,mai-bfxs-ucsgw 1 tab PO DAILY 08/04/22 02/11/23 Unknown History fluoxetine 10 mg capsule 10 mg PO DAILY #30 caps 11/12/22 02/11/23 Unknown Rx blood-glucose meter (Blood Glucose #1 ea 11/25/22 02/11/23 Unknown Rx Monitoring kit) lancets 26 gauge (Easy Touch #100 ea 11/27/22 02/11/23 Unknown Rx Safety Lancets) nifedipine 30 mg tablet,extended 30 mg PO DAILY 02/04/23 02/11/23 Unknown History release Allergies Allergy/AdvReac Type Severity Reaction Status Date / Time lidocaine Allergy ALGY-Hives Verified 02/11/23 13:43 [facility] Anesthesia Medical History Anxiety and depression History of gestational hypertension at term with her first No pertinent past medical history neghx:htn,dm,thyroid,dvt/pe Surgical History H/O section 03/22/2021- primary --low transverse uterine incision for OP presentation and CPD. Delivered by Dr. Blanco at [facility] Family History Family/Other Cancer Maternal Grandmother and Maternal Great-Grandmother Heart disease Paternal Grandmother and Maternal Grandmother Hypertension Maternal Grandfather Stroke Paternal Grandmother Mother Hypertension Denies family history of Colon cancer Ovarian cancer Breast cancer Uterine cancer Thyroid disease Social History Substance/Drug Use: never Do you think of yourself as: Straight/Heterosexual Female Reproductive History Para: 0 Spontaneous abortions: No Data Anesthesia Cardiac Studies: No Data to Display
[2023-02-23] VITALS (42 sets, daily range): BP systolic 105–133; BP diastolic 11–84; PULSE 73–100; RESP 14–18; TEMP 36.4–36.9; O2SAT 96–99; BMI 43.3
[2023-02-23 05:46] LABS: Basophils # 0.1 10^3/uL (0.0-0.1); Basophils % 0.5 %; Eosinophils # 0.2 10^3/uL (0.0-0.8); Hematocrit 33.8 % (36-47); Mean Corpuscular HGB Conc 31.4 g/dL (30-55); Mean Corpuscular Hemoglobin 24.3 pg (27-33); Mean Corpuscular Volume 77.3 fl (85-98); Mean Platelet Volume 11.7 fL (7.4-10.4); Monocytes # 1.2 10^3/uL (0.2-0.9); Monocytes % 7.4 %; Neutrophils # 10.37 10^3/uL (1.8-8.0); Neutrophils % 64.2 %; Nucleated Red Blood Cells % 0.2 %; Platelet Count 304 10^3/cmm (157-399); Red Blood Count 4.37 10^6/uL (3.85-5.65); Red Cell Distribution Width 15.1 % (12.1-15.1); White Blood Count 16.15 10^3/uL (4.5-13.0)
[2023-02-23 06:02] LABS: Slide Review Slide Review Perform
[2023-02-23 06:04] LABS: Add Urine Microscopic? YES; Bilirubin Urine Neg (Negative); Blood Urine Neg (Negative); Glucose Urine UA Norm (Normal); Ketones Urine Negative (Negative); Nitrate Urine Negative (Negative); Protein Urine Neg (Negative); Specific Gravity, Urine 1.015 (1.005-1.030); Urine Appearance SL Hazy (CLEAR); Urine Color Yellow (Yellow); Urobilinogen Urine Neg (Negative); pH Urine 7 (5-7)
[2023-02-23 06:05] LABS: Add Urine Culture? No; Bacteria Urine 2+ /hpf; Leukocyte Esterase Urine Trace (Negative); Mucus Urine 1+ /hpf; WBC Urine 0-4 /hpf (0-5)
[2023-02-23 06:07] LABS: Amphetamines Screen Urine Negative (Negative); Barbiturates Screen Urine Negative (Negative); Benzodiazepines Screen Urine Negative (Negative); Cocaine Screen Urine Negative (Negative); Opiate Screen Urine Negative (Negative); PCP Screen Urine Negative (Negative); THC Screen Urine Negative (Negative)
[2023-02-23] MEDS: lactated ringers 1,000 ML 999 ML IV (06:12)
[2023-02-23] MEDS: metoclopramide 5 mg/mL SDV 2 mL 10 MG IVP (06:42)
[2023-02-23] MEDS: citric acid-sodium citrate 30 mL UDC PO (06:42)
[2023-02-23] MEDS: famotidine 20 mg/2 mL INJ IVP (06:42)
--- NOTE | 2023-02-23 06:56 | ANES.PAUD2 ---
Pre-Anesthetic Update Pre-Anesthetic Assessment: Date of Surgery/Procedure: 02/23/23 Proposed Procedure: Operation Date: 02/23/23 07:00 Proposed Procedures p Repeat section 74211 ,O34.219(Not Applicable) - Devon Gracia MD Any changes to Pre-Anesthetic Assessment?: No Last Intake: 199902/22/23 Labs Last 48hrs: Short CBC 02/23/23 Range/Units 05:35 WBC 16.15 H (4.5-13.0) 10^3/ uL Hgb 10.60 L (12.4-14.8) g/dL Hct 33.8 L (36-47) % MCV 77.3 L (85-98) fl Plt Count 304 (157-399) 10^3/c mm Neut % (Auto) 64.2 % Neut # (Auto) 10.37 H (1.8-8.0) 10^3/u L Urine 02/23/23 Range/Units 05:35 Urine Color Yellow (Yellow) Urine Appearance Sl hazy A (CLEAR) Urine pH 7 (5-7) Ur Specific Gravit y 1.015 (1.005-1.030) Urine Protein Neg (Negative) Urine Glucose (UA) Norm (Normal) Urine Ketones Negative (Negative) Urine Nitrate Negative (Negative) Urine Bilirubin Neg (Negative) Ur Leukocyte Sonia ase Trace H (Negative) Urine RBC None (0-2) /hpf Urine WBC 0-4 H (0-5) /hpf Blood Bank 02/23/23 05:35 Blood Type B Positive Rho(D) Type Positive Antibody Screen Negative Vitals: Temperature 97.8 F 02/23/23 05:42 Temperature Source Oral 02/23/23 05:42 Pulse Rate 99 02/23/23 05:42 Respiratory Rate 18 02/23/23 05:42 Blood Pressure 125/68 02/23/23 05:42 Blood Pressure Pos ition Semi Fowlers 02/23/23 05:42 Oxygen Delivery Me thod Room Air 02/23/23 05:42 Other Pertinent Information: Other Pertinent Information: Patient exhibited lidocaine allergy with previous c/s. tolerated ropivicaine infusion for 15 hours with prior epidural did not exhibit allergic reaction to ropivicaine or bupivicaine will proceed with SAB and avoid lidocaine. Plan discussed with Dr. Gracia, will pretreat with pepcid and give benadryl and decadron post delivery of baby. UTI discussed with patient and Albino. Cardiac Studies: No Data to Display
[2023-02-23] MEDS: ceFAZolin 2,000 MG in sodium chloride 0.9% (plus) 50 ML 100 MG IV (07:53)
--- NOTE | 2023-02-23 08:23 | PM.OP ---
Operative Report Date of procedure: February 23, 2023 Pre-op diagnosis: Term Previous delivery Post-op diagnosis: Same as above Procedure done: Repeat low-transverse delivery Surgeon: Devon Gracia MD Estimated blood loss (mL): 750 IV fluids (mL): 1,400 Urine output (mL): 100 Procedure: After assuring informed consent, the patient was taken to the operating room and anesthesia was initiated. She was placed in the dorsal supine position with a left lateral tilt. The abdomen was prepped and draped in the usual sterile manner. A time-out procedure was performed. Preop antibiotics was administered. A Pfannenstiel skin incision was made with the scalpel and carried through to the underlying layer of fascia with the Bovie. The fascia was nicked in the midline and the incision extended laterally with the Ray scissors. The superior aspect of the fascial incision was then grasped with Venkat clamps and elevated and the underlying rectus muscle dissected off bluntly and sharp with ray scissors dense adhesions. Attention was then turned to the inferior aspect of the incision which, in similar fashion, was grasped and tented up with Venkat clamps and the rectus muscle dissected bluntly. The rectus muscles were then in the midline and the peritoneum identified, tented up and entered sharply with Metzenbaum scissors. The peritoneal incision was then extended superiorly and inferiorly with good visualization of the bladder. The Alfie O retractor was then inserted and the vesicouterine peritoneum identified, grasped with pickups and entered sharply with Metzenbaum scissors. This incision was then extended laterally and the bladder flap created digitally. The uterus incised in a low transverse fashion with the scalpel. The uterine incision was then extended with the bandage scissors. The bladder blade was removed and the was then delivered in the cephalic presentation atraumatically. The nose and the mouth were suctioned with bulb and the cord clamped and cut. The cord was normal and had three vessels. Amniotic fluid was clear. The placenta was then removed manually and the uterus exteriorized and cleared of all clots and debris. The uterine incision was repaired with 0 Vicryl in a running-locked fashion. A second layer of the same suture was used to obtain excellent hemostasis. The gutters were cleared of all clots. The uterus was then returned to the abdomen. The rectus muscles were approximated with 3-0 chromic gut. The incision was infiltrated with Exparel for pain management. The fascia was reapproximated with 0 Vicryl in an interrupted running fashion. The skin was closed with Insorb?s subcuticular absorbable bert. The patient tolerated the procedure well. The sponge, lap and needle counts were correct times three.
--- NOTE | 2023-02-23 09:49 | PC.NURSE ---
PT TO OB6 FROM OR VIA BED. ORIENTED TO ROOM/CALL LIGHT. INSTRUCTED NOT TO GET OUT OF BED WITHOUT ASSISTANCE. ICE CHIPS PROVIDED.
[2023-02-23] MEDS: dextrose 5%-lactated ringers 1,000 ML 125 ML IV ×2 (10:58→18:28)
--- NOTE | 2023-02-23 12:36 | ANE.PACU2 ---
Inpatient post-anesthesia follow up: Airway intact: Yes Vital signs: Temperature 97.7 F Pulse Rate 83 Respiratory Rate 15 Blood Pressure 111/58 Pulse Oximetry 99 Oxygen Delivery Me thod Room Air Oxygen Flow Rate Fraction of Inspir ed Oxygen Hydration adequate: Yes Nausea and vomiting: No Pain level: 2 Mental status: Baseline
[2023-02-23] MEDS: acetaminophen 325 mg Tablet 650 MG PO (12:48)
[2023-02-23] MEDS: diphenhydrAMINE 50 mg/mL SDV 1mL 25 MG IVP (12:48)
[2023-02-23] MEDS: ketorolac 30 mg/mL INJ IVP ×2 (14:32→20:30)
--- NOTE | 2023-02-23 15:46 | PC.NURSE ---
Pt stood at bedside, gown/underwear/pad changed. Pt to chair at bedside. Clear liquids provided.
--- NOTE | 2023-02-23 16:40 | PC.NURSE ---
Pt ambulated to L&D nurses station and back to room without difficulty, tolerated well.
[2023-02-23] MEDS: docusate sodium 100 mg Capsule PO (18:28)
[2023-02-23] MEDS: ferrous sulfate EC 325 mg Tablet PO (20:30)
[2023-02-23 21:14] LABS: Hematocrit 28.1 % (36-47); Mean Corpuscular HGB Conc 31.3 g/dL (30-55); Mean Corpuscular Hemoglobin 24.6 pg (27-33); Mean Corpuscular Volume 78.5 fl (85-98); Mean Platelet Volume 12.2 fL (7.4-10.4); Platelet Count 292 10^3/cmm (157-399); Red Blood Count 3.58 10^6/uL (3.85-5.65); Red Cell Distribution Width 15.2 % (12.1-15.1); White Blood Count 18.74 10^3/uL (4.5-13.0)
[2023-02-23] MEDS: lanolin oint 7 gm 1 APPLIC TOPICAL (23:22)
[2023-02-24] VITALS (8 sets, daily range): BP systolic 112–128; BP diastolic 57–68; PULSE 88–96; RESP 15–16; TEMP 35.6–36.1
[2023-02-24] MEDS: docusate sodium 100 mg Capsule PO ×2 (09:57→20:01)
[2023-02-24] MEDS: HYDROcodone-acetaminophen 5-325 mg Tablet PO ×2 (09:57→15:03)
[2023-02-24] MEDS: ferrous sulfate EC 325 mg Tablet PO ×2 (09:57→20:01)
[2023-02-24] MEDS: prenatal vitamin Capsule 1 CAP PO (09:58)
--- NOTE | 2023-02-24 10:22 | PM.PN ---
Subjective Subjective: Mrs. Leslie 22-year-old female is status post repeat low-transverse delivery day 1. Vitals/I&O/Wt Last Vital Signs Temp 96.0 F L 02/24/23 06:00 Pulse 93 02/24/23 09:42 Resp 16 02/24/23 06:00 BP 118/57 02/24/23 09:42 Pulse Ox 99 02/23/23 08:55 O2 Del Method Room Air 02/24/23 06:00 02/23/23 02/24/23 02/24/23 22:59 06:59 14:59 Intake Total 1537.500 / 4087.500 Output Total 650 / 1950 350 / 2300 Balance 887.500 / 2137.500 -350 / 1787.500 Weight last 48 hrs Weight 107.501 kg Physical Exam Narrative: GA; alert and oriented x 3 HEENT: normal Breasts: engorged Nipples - skin intact Lungs; clear to auscultation Heart: regular rhythm, no murmurs. Abd: Appropriately tender. BS+. Uterine fundus below umbilicus. No Fundal Tenderness. Minimal tenderness, incision clean and dry, no redness, pain or edema. Perineum: normal lochia. Extremities: no edema, no cyanosis, no tenderness. Urinary Catheter Management: Montez Latex: Cath Placed During This Visit: yes, but has since been removed by the nurse Reason for Continuing Indwelling Catheter: Decision to DC Catheter Urinary Catheter Date of Insertion: 02/23/23 Urinary Catheter Time of Insertion: 07:20 Date Urinary Catheter Removed: 02/23/23 Time Urinary Catheter Discontinued: 23:20 Data 02/23/23 20:47 A&P Assessment and plan (1) delivery delivered: Mrs. Leslie 22-year-old female status post repeat delivery. She is afebrile hemodynamically stable postoperative day 1. Ambulating without difficulty. Tolerating diet well. Attestations Medical Necessity Statement*: In my professional opinion per admitting diagnosis Coding Level of Care Code Acute Code for Chg Fwd Diagnoses delivery delivered O82
[2023-02-24] MEDS: alum-mag-hydroxide-sime 30 mL UDC PO (11:42)
[2023-02-24] MEDS: ibuprofen 800 mg tablet PO (20:01)
[2023-02-25 03:10] VITALS: BP 111/55; PULSE 78
[2023-02-25] MEDS: acetaminophen 325 mg Tablet 650 MG PO (05:14)
[2023-02-25] MEDS: ibuprofen 800 mg tablet PO (09:21)
[2023-02-25] MEDS: docusate sodium 100 mg Capsule PO (09:21)
[2023-02-25] MEDS: prenatal vitamin Capsule 1 CAP PO (09:21)
[2023-02-25] MEDS: HYDROcodone-acetaminophen 5-325 mg Tablet PO (09:21)
[2023-02-25] MEDS: ferrous sulfate EC 325 mg Tablet PO (09:21)
[2023-02-25 09:23] VITALS: BP 119/64; PULSE 80
[2023-02-25 11:02] VITALS: BP 120/76; PULSE 81
--- NOTE | 2023-02-25 12:34 | P.DS_ITS ---
Discharge Providers SHIRT LINE OPERATOR Date of Admission: 02/23/23 05:09 Date of Discharge: 02/25/23 Attending Provider at Admission: Devon Gracia MD Attending Provider at Discharge: Devon Gracia MD Primary SHIRT LINE OPERATOR: Devon Gracia MD Primary Care Provider: Tim Juarez Diagnoses at Discharge Discharge Diagnosis (1) delivery delivered: Status: Acute Reason for Visit Reason for Visit: Brief History: The patient is a 22yo at 39+3 weeks EGA who has been receiving care from [facility]. C/S x1. Admitted for repeat low-transverse delivery LMP unknown, HUSSAIN 02/27/2023 based off of 7 week ultrasound CC: Onset of labor at term. HPI: Received appropriate care. Daily vitamins since start of care. complicated by gestational diabetes. labs have all been normal, including negative for HIV. She was found to positive for Group B Strep from screening at 36 weeks. She has gained approximately 5 lbs throughout the . She denies a history of HTN during . Hospital Course Hospital Course Mrs. Leslie 22-year-old female G2, P1 with IUP at 39 weeks with previous low- transverse delivery. Admitted for a repeat low-transverse delivery. Procedure was performed without complications. Postop observation was uneventful. Tolerating diet well. Ambulating without difficulty. She is afebrile hemodynamically stable postoperative day 2. She was counseled regarding pelvic rest for 6 weeks (no sex, no tampons, no vaginal douches). Return to the emergency room if any fever, increased bleeding or pain. Information Peripartum Data: Infant Delivery Method: Physical Exam Narrative: GA; alert and oriented x 3 HEENT: normal Breasts: engorged Nipples - skin intact Lungs; clear to auscultation Heart: regular rhythm, no murmurs. Abd: Appropriately tender. BS+. Uterine fundus below umbilicus. No Fundal Tenderness. Minimal tenderness, incision clean and dry, no redness, pain or edema. Perineum: normal lochia. Extremities: no edema, no cyanosis, no tenderness. Urinary Catheter Management: Montez Latex: Cath Placed During This Visit: yes, but has since been removed by the nurse Reason for Continuing Indwelling Catheter: Decision to DC Catheter Urinary Catheter Date of Insertion: 02/23/23 Urinary Catheter Time of Insertion: 07:20 Date Urinary Catheter Removed: 02/23/23 Time Urinary Catheter Discontinued: 23:20 History History History 2 Term 1 0 Miscarriages/Ectopic 0 Living Children 1 Discharge Data Studies Completed and Pending Laboratory Results WBC 18.74 10^3/uL (4.5-13.0) H 02/23/23 20:47 RBC 3.58 10^6/uL (3.85-5.65) L 02/23/23 20:47 Hgb 8.80 g/dL (12.4-14.8) L 02/23/23 20:47 Hct 28.1 % (36-47) L 02/23/23 20:47 MCV 78.5 fl (85-98) L 02/23/23 20:47 MCH 24.6 pg (27-33) L 02/23/23 20:47 MCHC 31.3 g/dL (30-55) 02/23/23 20:47 RDW 15.2 % (12.1-15.1) H 02/23/23 20:47 Plt Count 292 10^3/cmm (157-399) 02/23/23 20:47 MPV 12.2 fL (7.4-10.4) H 02/23/23 20:47 Neut % (Auto) 64.2 % 02/23/23 05:35 Lymph % (Auto) 25.0 % 02/23/23 05:35 Runnels % (Auto) 7.4 % 02/23/23 05:35 Eos % (Auto) 1.0 % 02/23/23 05:35 Baso % (Auto) 0.5 % 02/23/23 05:35 Neut # (Auto) 10.37 10^3/uL (1.8-8.0) H 02/23/23 05:35 Lymph # (Auto) 4.0 10^3/uL (1.5-6.5) 02/23/23 05:35 Runnels # (Auto) 1.2 10^3/uL (0.2-0.9) H 02/23/23 05:35 Eos # (Auto) 0.2 10^3/uL (0.0-0.8) 02/23/23 05:35 Baso # (Auto) 0.1 10^3/uL (0.0-0.1) 02/23/23 05:35 Nucleated RBC % (auto) 0.2 % 02/23/23 05:35 Nucleated RBCs # 0.0 /100WBC 02/23/23 05:35 Urine Color Yellow (Yellow) 02/23/23 05:35 Urine Appearance Sl hazy (CLEAR) A 02/23/23 05:35 Urine pH 7 (5-7) 02/23/23 05:35 Ur Specific [place] 1.015 (1.005-1.030) 02/23/23 05:35 Urine Protein Neg (Negative) 02/23/23 05:35 Urine Glucose (UA) Norm (Normal) 02/23/23 05:35 Urine Ketones Negative (Negative) 02/23/23 05:35 Urine Blood Neg (Negative) 02/23/23 05:35 Urine Nitrate Negative (Negative) 02/23/23 05:35 Urine Bilirubin Neg (Negative) 02/23/23 05:35 Urine Urobilinogen Neg mg/dL (Negative) 02/23/23 05:35 Ur Leukocyte Esterase Trace (Negative) H 02/23/23 05:35 Urine RBC None /hpf (0-2) 02/23/23 05:35 Urine WBC 0-4 /hpf (0-5) H 02/23/23 05:35 Ur Squamous Epith Cells 10-15 /hpf (0-5) H 02/23/23 05:35 Amorphous Sediment Not Reportable 02/23/23 05:35 Urine Bacteria 2+ /hpf (NONE) H 02/23/23 05:35 Urine Mucus 1+ /hpf 02/23/23 05:35 Urine Opiates Screen Negative ng/mL (Negative) 02/23/23 05:35 Ur Barbiturates Screen Negative ng/mL (Negative) 02/23/23 05:35 Ur Phencyclidine Scrn Negative ng/mL (Negative) 02/23/23 05:35 Ur Amphetamines Screen Negative ng/mL (Negative) 02/23/23 05:35 U Benzodiazepines Scrn Negative ng/mL (Negative) 02/23/23 05:35 Urine Cocaine Screen Negative ng/mL (Negative) 02/23/23 05:35 U Marijuana (THC) Screen Negative ng/mL (Negative) 02/23/23 05:35 Blood Type B Positive 02/23/23 05:35 Rho(D) Type Positive 02/23/23 05:35 Antibody Screen Negative 02/23/23 05:35 Vitals Last Vital Signs Temp 96.9 F L 02/24/23 21:54 Pulse 81 02/25/23 11:02 Resp 15 02/24/23 21:54 BP 120/76 02/25/23 11:02 Pulse Ox 99 02/23/23 08:55 O2 Del Method Room Air 02/24/23 21:54 Results Labs OB ([facility]): Obstetrics US 12/07/22 Obstetrics US/Biophysical Profile Blood Type B Positive 02/23/23 Antibody Screen Negative 02/23/23 Hct 28.1 % (36-47) L 02/23/23 Hgb 8.80 g/dL (12.4-14.8) L 02/23/23 Rho(D) Type Positive 02/23/23 Plt Count 292 10^3/cmm (157-399) 02/23/23 Hep Bs Antigen Non-reactive (Nonreactive) 08/13/22 Hepatitis C Antibody Non-reactive (Nonreactive) 08/13/22 Rubella IgG Antibody 66.1 IU/mL (0.0-10.0) H 08/13/22 RPR Nonreactive (Nonreactive) 08/13/22 HIV 1&2 Ab & HIV 1 Ag Non-reactive (Non-Reactiv) 08/13/22 TSH 1.16 uIU/mL (0.27-4.20) 09/11/21 C.trachomatis RNA (TMA) Detected (NOT DETECTED) A 05/13/20 N.gonorrhoeae RNA (TMA) Not detected (NOT DETECTED) Chlamydia/GC Comment See note 05/13/20 Cystic Fibrosis Screen Negative 08/04/22 Gest Glucose Tolerance mg/dL 11/20/22 Uric Acid 4.1 mg/dL (2.4-5.7) 03/11/21 Ser , Semi-Qnt 3647.00 mIU/mL 07/01/22 HCG, Qual Positive (Negative) H 06/29/22 Urine Opiates Screen Negative ng/mL (Negative) 02/23/23 Ur Barbiturates Screen Negative ng/mL (Negative) 02/23/23 Ur Phencyclidine Scrn Negative ng/mL (Negative) 02/23/23 Ur Amphetamines Screen Negative ng/mL (Negative) 02/23/23 U Benzodiazepines Scrn Negative ng/mL (Negative) 02/23/23 Urine Cocaine Screen Negative ng/mL (Negative) 02/23/23 U Marijuana (THC) Screen Negative ng/mL (Negative) 02/23/23 Micro Urine Specimen 08/13/22 Discharge Plan Discharge Patient Disposition: Home Condition: Stable Prescriptions: New ibuprofen 800 mg tablet 800 mg PO TID PRN (Reason: pain) Qty: 60 0RF hydrocodone-acetaminophen 5-325 mg tablet 1 tab PO Q4H PRN (Reason: pain) Qty: 30 0RF Iron (ferrous sulfate) 325 mg (65 mg iron) tablet 325 mg PO BID Qty: 60 0RF Colace 100 mg capsule 100 mg PO BID Qty: 60 0RF acetaminophen 325 mg capsule 325 mg PO Q4H PRN (Reason: fever or pain) Qty: 60 0RF Zoloft 25 mg tablet 25 mg PO Q24H Qty: 30 0RF Continued fluoxetine 10 mg capsule 10 mg PO DAILY Qty: 30 0RF nifedipine 30 mg tablet extended release 30 mg PO DAILY Rx Instructions: take for 14 days prenat.vits,kvng,kzi-nlgq-bvyqs Tablet 1 tab PO DAILY (DME) blood-glucose meter [Blood Glucose Monitoring] Kit See Rx Instructions .Route Qty: 1 0RF Rx Instructions: As directed (DME) lancets [Easy Touch Safety Lancets] 26 gauge misc See Rx Instructions .Route Qty: 100 0RF Rx Instructions: As directed Discharge Orders: Discharge Order (Routine); Ordered 02/25/23 Ordered By: Devon Gracia Referrals: Devon Gracia MD [Physician] - 03/01/23 1:15 pm (Your [address] Gracia is scheduled for WednesdayMarch 01 at 1:15pm. Your [address] Gracia is scheduled for WednesdayApril 05 at 2:45pm. ) Discharge Diet: Usual diet Discharge Activity: Limit activity as instructed Patient Instructions: Depression (DC), Bleeding (DC), Preeclampsia and Eclampsia After Delivery (GEN), Hemorrhage (DC), OB WHC, OB D&C - WHC, OB Food/Drug Interaction Guide, Opioid Safety, OB Home Care, OB Proud Parent Packet Activity Restrictions/Additional Instructions: 1. Please call [facility] on next working day to make your post-operative appointment in 2 weeks. 2. Please stay home until you come back to the clinic on first post- hospatilization check up. 3. Please follow instructions on your medications CAREFULLY. 4. If you have abdominal incision, do not cover it unless dressing is necessary because of drainage. OK to shower, but avoid bath. Leave steri-strips until they fall off. If they are still on one week after surgery, you may remove them. 5. If you had vaginal surgery or vaginal repair, Dr. Gracia may instruct you to take SITZ bath. 6. Yellow, blood tinged odorous vaginal discharge is usually normal after hysterectomy or vaginal surgeries. 7. No SEXUAL INTERCOURSE, tampons, or douches until you are completely released from the post-operative care. 8. Avoid constipation by eating right and maybe using some Metamucil or Milk of Magnesia. 9. All prescription refills are given during the working hours. Please do no wait till it runs out. Call the clinic at [phone] before your medication runs out. The clinic will get in touch with your doctor to prescribe me dications if necessary. 10. Please remain within 40 mile radius from our hospital because emergencies do happen now and then during the post-operative period. 11. If you have stairs at home, take one step at a time slowly and minimize the number of trips. It helps to stay in one floor for the next few days. No lifting except what you can lift by one hand until you are released from the p ost-operative care. 12. Driving is discouraged until you are well healed. It may be 3-4 weeks before you feel strong enough to drive. You should be able to turn and look through the rear window without pain and you should be able to push the brake pedal very hard without pain before you drive. No fast rules, but SAFETY should be your primary concern. DO NOT drive if you are on sedating medications such as narcotics. 13. Call the clinic (during working hours) to make urgent appointment or go to the Emergency room, if any of the following occurs: i. Vaginal bleeding becomes heavy, more than a period. ii. Incision becomes red and sore, or drains pus. iii. Your TEMPERATURE is over 100.4F or you have chill. iv. IV site becomes red and swollen (a little ``knot?? is usually OK) v. Persistent nausea and vomiting vi. Persistent constipation or diarrhea vii. Rash or allergic reaction to medications. Discharge Attestations SHIRT LINE OPERATOR Time Spent in Discharge Care*: greater than 30 min Coding Level of Care Code Acute Code for Chg Fwd Diagnoses delivery delivered O82
[2023-02-25 13:07] VITALS: BP 127/66; PULSE 84
[2023-02-25 13:40] VITALS: BP 127/66; PULSE 84
== END 2023-02-25 13:50 | disposition home or self-care (01) | DRG 788 ==
PROVIDERS: Admitting Provider Obstetrics & Gynecology; PCP Family Medicine; Visit Provider Obstetrics & Gynecology
PROC: 10D00Z1 Extraction of Products of Conception, Low, Open Approach (ICD-10-PCS; CPT 59514; principal; 2023-02-23 07:00)
DX: O34.211 Maternal care for low transverse scar from previous cesarean delivery (principal); Z3A.39 39 weeks gestation of pregnancy; Z37.0 Single live birth; O99.344 Other mental disorders complicating childbirth; O99.334 Smoking (tobacco) complicating childbirth; F17.210 Nicotine dependence, cigarettes, uncomplicated; O99.824 Streptococcus B carrier state complicating childbirth; O99.214 Obesity complicating childbirth; O24.429 Gestational diabetes mellitus in childbirth, unspecified control; F41.9 Anxiety disorder, unspecified; F32.A Depression, unspecified; K21.9 Gastro-esophageal reflux disease without esophagitis; O75.89 Other specified complications of labor and delivery
CPT/HCPCS: 36415; 51702; 59025; 59409; 80306; 81001; 85025; 85027; 86850; 86900; 96374; 96376; C9290; J0690; J1100; J1200; J1885; J2274; J2371; J2400; J2405; J2765; J3490; J7120; J7121

== ENCOUNTER 2023-08-17 05:51 | Day surgery (SDC) | payer MEDICAID, SELFPAY ==
[2021-05-29 15:25] VITALS: BP 117/73; BMI 30.6
--- NOTE | 2023-08-16 10:49 | P.ANESASSM_ITS ---
Pre-Anesthetic Assessment Height/Weight: Height 1.57 m Operation Date: 08/17/23 07:00 Proposed Procedures p Laparoscopic bilateral salpingectomy 68283,Z30.2(Bilateral) - Devon Gracia MD Familial anesthetic complications: required general for c=section because epidural didn't work Social Tobacco and No alcohol Exam alert, oriented x 3, clear to auscultation bilaterally and regular rate & rhythm Airway Dentition: full Anesthetic Plan ASA status: 2 Anesthesia: General Risk of > 500 ml blood loss (7ml/kg in children): No Medications/Allergies Home Medications Medication Instructions Recorded Confirmed Last Taken Type sertraline 25 mg tablet (Zoloft) 25 mg PO Q24H depresion 02/25/23 08/16/23 08/16/23 Rx #30 tabs norgestimate 0.25 mg-ethinyl 1 tab PO DAILY #84 tabs 03/29/23 08/16/23 08/16/23 Rx estradiol 35 mcg tablet (Sprintec (28)) Allergies Allergy/AdvReac Type Severity Reaction Status Date / Time lidocaine Allergy ALGY-Hives Verified 08/16/23 09:54 [facility] Anesthesia Medical History History of gestational hypertension at term with her first No pertinent past medical history neghx:htn,dm,thyroid,dvt/pe Anxiety and depression Surgical History H/O section 03/22/2021- primary --low transverse uterine incision for OP presentation and CPD. Delivered by Dr. Blanco at [facility] Family History Family/Other Cancer Maternal Grandmother and Maternal Great-Grandmother Heart disease Paternal Grandmother and Maternal Grandmother Hypertension Maternal Grandfather Stroke Paternal Grandmother Mother Hypertension Denies family history of Colon cancer Ovarian cancer Breast cancer Uterine cancer Thyroid disease Female Reproductive History Para: 0 Spontaneous abortions: No Data Anesthesia Cardiac Studies: No Data to Display
[2023-08-17] VITALS (10 sets, daily range): BP systolic 107–134; BP diastolic 62–95; PULSE 62–83; RESP 16–18; TEMP 36.1–36.6; O2SAT 96–99; BMI 39.3
[2023-08-17] MEDS: scopolamine 1.5 Patch 1 PATCH TRANSDERMA (06:22)
[2023-08-17] MEDS: sodium chloride 0.9% 500 ML IV (06:22)
[2023-08-17 06:29] LABS: OR HCG Qualitative Urine Negative (Negative)
[2023-08-17 06:53] LABS: Add Urine Microscopic? NO; Charge for UA Resulting for Rev
[2023-08-17 06:56] LABS: Basophils # 0.1 10^3/uL (0.0-0.1); Basophils % 0.8 %; Eosinophils # 0.2 10^3/uL (0.0-0.8); Hematocrit 40.2 % (36-47); Lymphocytes # 2.6 10^3/uL (0.8-4.8); Lymphocytes % 29.5 %; Mean Corpuscular HGB Conc 32.1 g/dL (30-55); Mean Corpuscular Hemoglobin 26.3 pg (27-33); Mean Platelet Volume 11.7 fL (7.4-10.4); Monocytes # 0.7 10^3/uL (0.2-0.9); Monocytes % 7.5 %; Neutrophils # 5.32 10^3/uL (1.8-7.7); Neutrophils % 59.8 %; Nucleated Red Blood Cells % 0 %; Platelet Count 288 10^3/cmm (157-399); Red Cell Distribution Width 15.3 % (12.1-15.1); White Blood Count 8.91 10^3/uL (3.29-11.43)
[2023-08-17 07:01] LABS: Bilirubin Urine Neg (Negative); Blood Urine Neg (Negative); Glucose Urine UA Norm (Normal); Ketones Urine 1+ (Negative); Leukocyte Esterase Urine Negative (Negative); Nitrate Urine Negative (Negative); Protein Urine Neg (Negative); Specific Gravity, Urine 1.025 (1.005-1.030); Urine Appearance Clear (CLEAR); Urine Color Yellow (Yellow); Urobilinogen Urine Neg (Negative); pH Urine 5 (5-7)
--- NOTE | 2023-08-17 07:05 | P.ANESUD_ITS ---
Pre-Anesthetic Update Pre-Anesthetic Assessment: Date of Surgery/Procedure: 08/17/23 Preop Lissette gnosis: Desire permanent sterilization Proposed Procedure: Operation Date: 08/17/23 07:00 Proposed Procedures p Laparoscopic bilateral salpingectomy 97406,Z30.2(Bilateral) - Devon Gracia MD Last Intake: Intake Last Liquid Date 08/16/23 Last Liquid Time 20:15 Last Solid Date 08/16/23 Last Solid Time 20:15 Labs Last 48hrs: Short CBC 08/17/23 Range/Units 06:10 WBC 8.91 (3.29-11.43) 10^ 3/uL Hgb 12.90 (11.27-16.99) g/ dL Hct 40.2 (36-47) % MCV 82.0 L (85-98) fl Plt Count 288 (157-399) 10^3/c mm Neut % (Auto) 59.8 % Neut # (Auto) 5.32 (1.8-7.7) 10^3/u L Urine 08/17/23 Range/Units 06:06 Urine Color Yellow (Yellow) Urine Appearance Clear (CLEAR) Urine pH 5 (5-7) Ur Specific Gravit y 1.025 (1.005-1.030) Urine Protein Neg (Negative) Urine Glucose (UA) Norm (Normal) Urine Ketones 1+ H (Negative) Urine Nitrate Negative (Negative) Urine Bilirubin Neg (Negative) Ur Leukocyte Sonia ase Negative (Negative) Vitals: Temperature 97.4 F L 08/17/23 06:10 Temperature Source Temporal Artery S can 08/17/23 06:10 Pulse Rate 83 08/17/23 06:10 Respiratory Rate 18 08/17/23 06:10 Blood Pressure 134/95 08/17/23 06:10 Blood Pressure Daily n 108 08/17/23 06:10 Pulse Oximetry 97 08/17/23 06:10 Oxygen Delivery Me thod Room Air 08/17/23 06:10 Exam: Pre-Anes Outpt Exam: alert, oriented x 3, clear to auscultation bilaterally and regular rate & rhythm Cardiac Studies: No Data to Display
[2023-08-17 07:15] LABS: Albumin Level 4.4 g/dL (3.5-5.2); Alkaline Phosphatase 122 U/L (35-105); Chloride 108 mmol/L (98-107); Potassium 3.5 mmol/L (3.5-5.1); Sodium 143 mmol/L (136-145)
[2023-08-17] MEDS: sodium chloride 0.9% 1,000 ML 30 ML IV (07:20)
[2023-08-17 07:27] LABS: Alanine Aminotransferase 21 U/L (0-33); Anion Gap 14.5 (5-19); Aspartate Amino Transferase 15 U/L (0-32); Blood Urea Nitrogen 19 mg/dL (6-20); Calcium 9.1 mg/dL (8.5-10.5); Carbon Dioxide 24 mmol/L (22-29); Creatinine Clr Calc Pharmacy 161.7201; Globulin 3.4 g/dL (1.3-4.6); Glomerular Filtration Rate 126.2 mL/min (90-130); Glucose 95 mg/dL (65-115); Osmolality Calculated 298 mOsm/kg (285-295); Total Bilirubin 0.3 mg/dL (0.15-1.2); Total Protein 7.8 g/dL (6.6-8.7)
--- NOTE | 2023-08-17 07:30 | W.PM.OPSUD ---
Surgery/Procedure H&P Update DATE OF PROCEDURE: August 17, 2023 DATE H&P PERFORMED: 08/16/23 H&P UPDATE INFORMATION: I have reviewed H&P completed within last 30 days, I have examined patient prior to procedure and No changes to prior documentation PREOP DIAGNOSIS: Desire permanent sterilization PLANNED PROCEDURE: Operation Date: 08/17/23 07:00 Proposed Procedures p Laparoscopic bilateral salpingectomy 13723,Z30.2(Bilateral) - Devon Gracia MD
[2023-08-17] MEDS: ceFAZolin 2,000 MG in sodium chloride 0.9% (plus) 50 ML 100 MG IV (07:33)
--- NOTE | 2023-08-17 08:49 | PM.OP ---
Operative Report Date of procedure: August 17, 2023 Pre-op diagnosis: Desire permanent sterilization Post-op diagnosis: Desire permanent sterilization Anterior wall omental abdominal adhesions Post-op findings: Omental abdominal adhesions to the anterior wall Procedure done: Laparoscopic bilateral salpingectomy Lysis of adhesions Specimens removed/disposition: Left and right fallopian tube Surgeon: Devon Gracia MD Estimated blood loss (mL): 10 IV fluids (mL): 1,000 Complications: None Findings: Omental adhesions to anterior abdominal wall Procedure: After informed consent, the patient was taken to the operating room where general anesthesia was administered. She was placed in the dorsal lithotomy position and prepped and draped in sterile fashion. Pre-Procedure Time-Out verifying the correct patient identity, correct procedure verified with consent, correct site and side, correct patient position, availability of correct implants and any special equipment or requirements was performed and acknowledge by the OR team. The patient was examined under anesthesia and found to have a normal uterus with normal adnexa. A weighted speculum was placed in the vagina, and the anterior lip of cervix was grasped with the single toothed tenaculum. A uterine manipulator was advanced into the endocervical canal and uterus. The tenaculum was removed after uterine manipulator was secured. The speculum was removed from the vagina. An intraumbilical incision was made with a scalpel. While tenting up on the abdomen, a Verres needle was admitted into the intra-abdominal cavity. A saline drop test was performed and noted to be within normal limits. Pneumoperitoneum was attained with 4 liters of carbon dioxide. The Verres needle was removed. A 5 mm Opitc view trocar and sleeve were admitted into the abdomen and laparoscopic confirmation of location was achieved. A second incision was made 3 cm above the symphysis pubis, and a 5 mm trocar sleeves were admitted into the abdomen under direct laparoscopic visualization without complication. The abdominal survey revealed normal abdominal anatomy with the exception of omental adhesions adhesion to the anterior abdominal wall. A 5 mm blunt probe was advanced through the second trocar sleeve, and light manipulation of ovaries and uterus to assess the posterior aspects was performed. The pelvic survey shows normal uterus, left and right adnexa. The patient was placed into Trendelenburg position. The fallopian tubes were inspected bilaterally and the fimbriated ends of the fallopian tubes were visualized bilaterally. Attention was then directed to the right side. The fallopian tube and mesosalpinx were grasped and the underlying mesosalpinx was cauterized and cut using the Ligasure device. Serial cauterization and cutting was used to separate the fallopian tube from the underlying mesosalpinx until it could be amputated cutting it approximated 2 cm from the cornua. Attention was then turned to the contralateral fallopian tube, which was removed in similar fashion. Both specimens were removed through the trocar and sent to pathology. A third incision was made right lower quadrant, and a 5 mm trocar sleeves were admitted into the abdomen under direct laparoscopic visualization without complication. Then the adhesion was fulgurated and transected with good hemostasis with the Ligasure. Tthe instruments were removed. The suprapubic trocar port was removed under direct visualization insuring good hemostasis. The carbon dioxide was allowed to escape from the abdomen. The intraumbilical trocar sleeve was withdrawn under visualization with laparoscope in the sleeve to insure hemostasis. The skin incisions were closed with 3-O Monocryl subcuticular stich and Dermabond. The instruments were removed from the vagina, and excellent hemostasis was noted. The patient tolerated the procedure well, and sponge, lap and needle count were correct times two. The patient was taken to the recovery room in good condition.
[2023-08-17] MEDS: HYDROcodone-acetaminophen 5-325 mg Tablet 1 TAB PO (10:04)
--- NOTE | 2023-08-17 10:18 | PC.NURSE ---
Catheter removed without an issues. 200 mLs of urine in catheter bag.
--- NOTE | 2023-08-17 15:01 | ANE.PACU2 ---
Inpatient post-anesthesia follow up: Vital signs: Temperature 97.5 F Pulse Rate 65 Respiratory Rate 18 Blood Pressure 107/79 Pulse Oximetry 99 Oxygen Delivery Me thod Room Air Oxygen Flow Rate 2 Fraction of Inspir ed Oxygen Hydration adequate: Yes Nausea and vomiting: No Mental status: Baseline Additional Comments: no apparent anesthetic complications noted
== END 2023-08-17 10:33 | disposition home or self-care (01) ==
PROVIDERS: PCP Family Medicine; Visit Provider Obstetrics & Gynecology
PROC: (CPT 58661; principal; 2023-08-17 07:00)
PROC: (CPT 58661; 2023-08-17 07:00)
DX: Z30.2 Encounter for sterilization (principal); N73.6 Female pelvic peritoneal adhesions (postinfective)
CPT/HCPCS: 58661; 36415; 80053; 81003; 81025; 84703; 85025; 86850; 86900; 88302; J0690; J1100; J1885; J2405; J2704; J2710; J3010; J3490; J7030; J7040

== ENCOUNTER → 2023-10-19 08:19 | Outpatient (BNVA) | payer MEDICAID, SELFPAY ==
[2021-05-29 15:25] VITALS: BP 117/73; BMI 30.6
== END ==
PROVIDERS: PCP Family Medicine; Visit Provider Obstetrics & Gynecology
DX: Z34.90 Encounter for supervision of normal pregnancy, unspecified, unspecified trimester (principal)
CPT/HCPCS: 84702

== ENCOUNTER → 2023-11-12 10:59 | Outpatient (BNVA) | payer MEDICAID, SELFPAY ==
[2021-05-29 15:25] VITALS: BP 117/73; BMI 30.6
== END ==
PROVIDERS: PCP Family Medicine; Visit Provider Obstetrics & Gynecology
DX: O09.899 Supervision of other high risk pregnancies, unspecified trimester (principal); Z3A.00 Weeks of gestation of pregnancy not specified
CPT/HCPCS: 83001; 84146; 84443

== ENCOUNTER → 2024-06-16 10:08 | Outpatient (BNVA) | payer MEDICAID, SELFPAY ==
[2021-05-29 15:25] VITALS: BP 117/73; BMI 30.6
== END ==
PROVIDERS: PCP Family Medicine; Visit Provider Nurse Practitioner Women's Health
DX: N91.4 Secondary oligomenorrhea (principal); N91.5 Oligomenorrhea, unspecified
CPT/HCPCS: 82670; 83001; 83036; 83525; 84146; 84403; 84439; 84443; 84702; 88175

== ENCOUNTER → 2024-06-28 14:49 | Outpatient (BNVA) | payer MEDICAID, SELFPAY ==
[2021-05-29 15:25] VITALS: BP 117/73; BMI 30.6
== END ==
PROVIDERS: PCP Family Medicine; Visit Provider Nurse Practitioner Women's Health
DX: N92.6 Irregular menstruation, unspecified (principal)
CPT/HCPCS: 76830

== ENCOUNTER → 2024-10-02 11:40 | Outpatient (BNVA) | payer MEDICAID, SELFPAY ==
[2021-05-29 15:25] VITALS: BP 117/73; BMI 30.6
== END ==
PROVIDERS: PCP Family Medicine; Visit Provider Nurse Practitioner Women's Health
DX: F53.0 Postpartum depression (principal); R53.83 Other fatigue; N91.5 Oligomenorrhea, unspecified
CPT/HCPCS: 80053; 82306; 82607; 82728; 82746; 83036; 83525; 83540; 84439; 84443; 85025

== ENCOUNTER → 2024-10-10 15:13 | Outpatient (BNVA) | payer MEDICAID, SELFPAY ==
[2021-05-29 15:25] VITALS: BP 117/73; BMI 30.6
== END ==
PROVIDERS: PCP Family Medicine; Visit Provider Nurse Practitioner Women's Health
DX: N92.1 Excessive and frequent menstruation with irregular cycle (principal); N85.8 Other specified noninflammatory disorders of uterus; N83.201 Unspecified ovarian cyst, right side; N85.00 Endometrial hyperplasia, unspecified
CPT/HCPCS: 76830

== ENCOUNTER → 2025-02-08 14:48 | Outpatient (BNVA) | payer MEDICAID, SELFPAY ==
[2021-05-29 15:25] VITALS: BP 117/73; BMI 30.6
== END ==
PROVIDERS: PCP Family Medicine; Visit Provider Nurse Practitioner Women's Health
DX: E55.9 Vitamin D deficiency, unspecified (principal); R30.0 Dysuria; R10.20 Pelvic and perineal pain unspecified side
CPT/HCPCS: 82306; 84315; 87086

== ENCOUNTER → 2025-02-14 14:03 | Outpatient (BNVA) | payer MEDICAID, SELFPAY ==
[2021-05-29 15:25] VITALS: BP 117/73; BMI 30.6
== END ==
PROVIDERS: PCP Family Medicine; Visit Provider Nurse Practitioner Women's Health
DX: Z30.430 Encounter for insertion of intrauterine contraceptive device (principal)
CPT/HCPCS: 81025